=== PATIENT | female | born 1930 | race Caucasian/White ===

== ENCOUNTER 2019-03-05 11:38 | Emergency (ER) | payer MEDICARE, BC ==
[2019-03-05] MEDS ORDERED: ONDANSETRON HCL INJ/PF 4 MG/2 ML SDV IV ONE (12:36)
[2019-03-05] MEDS ORDERED: MECLIZINE HCL 12.5 MG TABLET PO ONE (12:36)
--- NOTE | 2019-03-05 12:39 | ER Document Report ---
ED Medical Screen (RME) - General Chief Complaint: Vertigo Stated Complaint: NAUSEA/VOMITING Time Seen by Provider: 03/05/19 12:35 Primary Care Provider: TRINA WILLAMS [Primary Care Provider] - Follow up as needed Mode of Arrival: Ambulatory Information source: Patient Notes: Patient presents complaining of vertigo for the past 2 days with nausea. Patient does report rotational movement. Patient denies any head injury, headache, chest pain or fever. Patient states she has had vertigo in the past that was treated successfully with meclizine although she states her doctor told her that meclizine is not used to treat the vertigo. Patient did not have any known adverse reaction to meclizine. Patient states [id number] seasickness medication has not been helping her symptoms. I have greeted and performed a rapid initial assessment of this patient. A comprehensive ED assessment and evaluation of the patient, analysis of test results and completion of the medical decision making process will be conducted by additional ED providers. - Related Data Allergies/Adverse Reactions: No Known Allergies Allergy (Unverified 03/05/19 11:41) Past Medical History - Social History Chew tobacco use (# tins/day): No Frequency of alcohol use: None Drug Abuse: None Renal/ Medical History: Denies: Hx Peritoneal Dialysis Physical Exam - Vital signs Vitals: Temp Pulse Resp BP Pulse Ox 97.5 F 73 16 156/101 H 97 03/05/19 11:47 03/05/19 11:47 03/05/19 11:47 03/05/19 11:47 03/05/19 11:47 - General Notes: Patient with horizontal nystagmus, awake alert oriented, ambulates with minimal assistance Course - Vital Signs Vital signs: Temp Pulse Resp BP Pulse Ox 97.5 F 73 16 156/101 H 97 03/05/19 11:47 03/05/19 11:47 03/05/19 11:47 03/05/19 11:47 03/05/19 11:47 Doctor's Discharge - Discharge Referrals: TRINA WILLAMS [Primary Care Provider] - Follow up as needed
[2019-03-05 14:48] LABS: ABSOLUTE LYMPHOCYTES (AUTO) 1.2 10^3/uL (0.5-4.7); ABSOLUTE MONOCYTES (AUTO) 0.4 10^3/uL (0.1-1.4); BASOPHILS % (AUTO) 0.6 % (0-2); EOSINOPHILS % (AUTO) 0.4 % (0-6); HEMOGLOBIN 15.1 g/dL (12.0-15.5); LYMPHOCYTES % (AUTO) 15.1 % (13-45); MEAN CORPUSCULAR HEMOGLOBIN 29.9 pg (27.0-33.4); MEAN CORPUSCULAR HGB CONC 33.6 g/dL (32.0-36.0); MEAN CORPUSCULAR VOLUME 89 fl (80-97); MONOCYTES % (AUTO) 5.7 % (3-13); PLATELET COUNT 274 10^3/uL (150-450); RED BLOOD COUNT 5.06 10^6/uL (3.72-5.28); RED CELL DISTRIBUTION WIDTH 13.5 % (11.5-14.0); SEGMENTED NEUTROPHILS % (AUTO) 78.2 % (42-78); TOTAL CELLS COUNTED % (AUTO) 100 %; WHITE BLOOD COUNT 7.6 10^3/uL (4.0-10.5)
[2019-03-05 15:08] LABS: ALANINE AMINOTRANSFERASE 18 U/L (9-52); ALBUMIN 4.3 g/dL (3.5-5.0); ALKALINE PHOSPHATASE 75 U/L (38-126); ANION GAP 11 (5-19); ASPARTATE AMINO TRANSFERASE 25 U/L (14-36); BILIRUBIN,DIRECT 0.3 mg/dL (0.0-0.4); BILIRUBIN,TOTAL 0.8 mg/dL (0.2-1.3); BLOOD UREA NITROGEN 16 mg/dL (7-20); CALCIUM 9.8 mg/dL (8.4-10.2); CARBON DIOXIDE 27 mmol/L (22-30); CHLORIDE 101 mmol/L (98-107); GLUCOSE 90 mg/dL (75-110); POTASSIUM 4.2 mmol/L (3.6-5.0); SODIUM 139.2 mmol/L (137-145); TOTAL PROTEIN 7.4 g/dL (6.3-8.2)
--- NOTE | 2019-03-05 16:00 | ER Document Report ---
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 She states that she has had about 2 or 3 episodes in her entire life that were this severe and this is what prompted her to get seen. She is nauseated and unable to tolerate p.o. liquids. She she has difficulty walking without holding onto the wall. She denies fevers or chills, she denies severe headache, she denies neck stiffness, denies weakness, denies paralysis of any of her extremities, denies confusion, denies shortness of breath or chest pain, denies abdominal pain, denies any weakness, denies urinary symptoms. - Related Data Allergies/Adverse Reactions: No Known Allergies Allergy (Unverified 03/05/19 11:41) Past Medical History - General Information source: Patient - Social History Smoking Status: Never Smoker Chew tobacco use (# tins/day): No Frequency of alcohol use: None Drug Abuse: None Family History: None Patient has suicidal ideation: No Patient has homicidal ideation: No Renal/ Medical History: Denies: Hx Peritoneal Dialysis Review of Systems - Review of Systems Constitutional: See HPI EENT: See HPI Cardiovascular: See HPI Respiratory: No symptoms reported Gastrointestinal: See HPI Genitourinary: See HPI Female Genitourinary: No symptoms reported Musculoskeletal: No symptoms reported Skin: No symptoms reported Hematologic/Lymphatic: No symptoms reported Neurological/Psychological: See HPI Physical Exam - Vital signs Vitals: Temp Pulse Resp BP Pulse Ox 97.5 F 73 16 156/101 H 97 03/05/19 11:47 03/05/19 11:47 03/05/19 11:47 03/05/19 11:47 03/05/19 11:47 - Notes Notes: PHYSICAL EXAMINATION: Reviewed vital signs and charting by RN GENERAL: Alert, interacts well. No acute distress. HEAD: Normocephalic, atraumatic. EYES: Pupils equal, round, and reactive to light. Extraocular movements intact. ENT: Oral mucosa moist, tongue midline. NECK: Full range of motion. Supple. Trachea midline. LUNGS: Clear to auscultation bilaterally, no wheezes, rales, or rhonchi. No respiratory distress. HEART: Regular rate and rhythm. No murmur ABDOMEN: soft, non-tender. No distention. Bowel sounds present EXTREMITIES: Moves all 4 extremities spontaneously. No edema, No cyanosis. Strength 5/5 in all 4 extremities both proximal and distal, 5/5 heat set operator strength, 5/5 strength with dorsal and plantar flexion NEURO: Alert and oriented x3, no focal neuro deficits, normal neurologic exam, no cerebellar defects on neuro testing. PSYCH: Normal affect, normal mood. SKIN: Warm, dry, normal turgor. No rashes or lesions noted. Course - Re-evaluation Re-evalutation: 03/05/19 15:58 Well-appearing and presenting with what she states is a more severe episode of one of her typical vertigo attacks. Overall lab work within normal limits, I added a troponin. I asked that she provide urine for urinalysis and she is going to attempt to do so. Chest x-ray was normal. She had a normal neurologic exam with no focal neuro deficits. Because she has not had a significant attack in more than a decade and her advanced age out of an abundance of caution I am going to get a CT head without. When she sat up and I asked her to drink water she did become nauseated after taking a large drink of water. She received meclizine and Zofran in triage but is unable to get any antiemetics at this time due to the time of dosing. 03/05/19 16:06 03/05/19 17:43 CT head without negative for any intracranial pathology, bleed, mass, stroke. Urinalysis was significantly contaminated but no clear evidence of urinary tract infection. Because this is a consistent presentation from past episodes and neuro exam is normal, CT head is normal, work-up overall normal patient is stable to discharge home. - Vital Signs Vital signs: Temp Pulse Resp BP Pulse Ox 97.5 F 73 17 160/76 H 89 L 03/05/19 11:47 03/05/19 11:47 03/05/19 17:01 03/05/19 17:01 03/05/19 17:01 - Laboratory Result Diagrams: 03/05/19 14:21 03/05/19 14:21 Laboratory results interpreted by me: 03/05/19 03/05/19 14:21 16:13 Seg Neutrophils % 78.2 H Urine Ketones 20 H Urine Blood SMALL H Discharge - Discharge Clinical Impression: Dizziness, Nausea Condition: Good Disposition: HOME, SELF-CARE Additional Instructions: You were seen in emergency department this afternoon for dizziness and vertigo. Your symptoms improved with medicine here in the emergency department and that is very reassuring. Your work-up was completely negative to include head CT and urinalysis. Your blood work did not show any evidence of infection or any electrolyte abnormalities. Your neurologic exam was normal. This is all very reassuring. If you develop severe sudden headache, passout, get facial droop, get weakness or paralysis in one or more her legs, have severe intractable vomiting, severe chest pain or shortness of breath, profuse diarrhea, please immediately return to the emergency department. Please follow-up with your primary doctor in the next 24 to 72 hours. Referrals: LOCALMD,NO [NO LOCAL MD] - Follow up as needed
--- NOTE | 2019-03-05 16:55 | RADIOLOGY REPORT (SQ) ---
EXAM DESCRIPTION: CT HEAD WITHOUT COMPLETED DATE/TIME: 03/05/2019 4:34 pm REASON FOR STUDY: dizziness, nausea COMPARISON: None. TECHNIQUE: Axial images acquired through the brain without intravenous contrast. Images reviewed wi th bone, brain and subdural windows. Images stored on PACS. All CT scanners at this facility use dose modulation, iterative reconstruction, and/or weight based d osing when appropriate to reduce radiation dose to as low as reasonably achievable (ALARA). [facility]: Dose Right [facility]: CareDose [facility]: Dose Right [facility]: Teradose 4D [facility]: Paxer RADIATION DOSE: CT Rad equipment meets quality standard of care and radiation dose reduction techniq ues were employed. CTDIvol: 53.2 mGy. DLP: 964 mGy-cm.mGy. LIMITATIONS: None. FINDINGS: VENTRICLES: Normal. CEREBRUM: No masses. No hemorrhage. No midline shift. Areas of low density in the white matter mos t likely due to chronic micro-vascular ischemic change. No evidence for acute infarction. CEREBELLUM: No masses. No hemorrhage. No alteration of density. No evidence for acute infarction. EXTRAAXIAL SPACES: Age-related involutional change. No fluid collections. No masses. ORBITS AND GLOBE: No intra- or extraconal masses. Normal contour of globe without masses. CALVARIUM: No fracture. PARANASAL SINUSES: No fluid or mucosal thickening. SOFT TISSUES: 1.8 cm soft tissue nodule in the left posterior nasopharynx. OTHER: No other significant finding. IMPRESSION: No intracranial hemorrhage. No midline shift. Areas of low density in the white matter most likely due to chronic micro-vascular ischemic change. 1.8 cm soft tissue nodule in the left posterior nasopharynx. EVIDENCE OF ACUTE STROKE: NO. TECHNICAL DOCUMENTATION: JOB ID: [id number] Quality ID # [id number]: Final reports with documentation of one or more dose reduction techniques (e.g., Au tomated exposure control, adjustment of the mA and/or kV according to patient size, use of iterative reconstruction technique) 2010 [employer]- All Rights Reserved Reading location - IP/workstation name: [email or web address]
[2019-03-05 17:15] VITALS: BP 160/76
--- NOTE | 2019-03-05 17:33 | EKG REPORT ---
SEVERITY:- NORMAL ECG - SINUS RHYTHM : Confirmed by: Kristin Dahl MD 05-Mar-2019 17:32:34
[2019-03-05 17:41] LABS: APPEARANCE,URINE CLOUDY; BILIRUBIN,URINE NEGATIVE (NEGATIVE); COLOR,URINE YELLOW; GLUCOSE, URINE NEGATIVE (NEGATIVE); KETONES,URINE 20 mg/dL (NEGATIVE); LEUKOCYTE ESTERASE,URINE NEGATIVE (NEGATIVE); NITRITE,URINE NEGATIVE (NEGATIVE); PROTEIN,URINE NEGATIVE (NEGATIVE); URINE SPECIFIC GRAVITY 1.015; UROBILINOGEN,URINE NEGATIVE mg/dL (<2.0)
== END 2019-03-05 17:59 | disposition home or self-care (01) ==
LOC: ER 11:38
DX: R42 Dizziness and giddiness (principal); R11.0 Nausea
CPT/HCPCS: 93005; 99284; 96374; 36415; 85025; 80053; 81001; 84484; 70450; 93010; A9270; J2405; J3490